=== PATIENT | male | born 1945 | race Caucasian/White ===

== ENCOUNTER 2017-04-20 10:04 | Inpatient (IN) | payer OTHER, MEDICAID ==
[~2017-04-20] VITALS: Ht 177.8 cm; Wt 85.8 kg
[2017-04-20 10:14] VITALS: BP 114/74
[2017-04-20] MEDS ORDERED: NACL 0.9% 2,000 ML IV SCH (10:15)
[2017-04-20] MEDS ORDERED: DONE10TA91 PO (10:25)
[2017-04-20] MEDS ORDERED: ASPI81EC98 PO ×3 (10:25→16:13)
[2017-04-20] MEDS ORDERED: PRAV80TA PO (10:25)
[2017-04-20] MEDS ORDERED: MEMA5TAB PO (10:25)
[2017-04-20] MEDS ORDERED: LISI-420 PO (10:25)
[2017-04-20] MEDS ORDERED: QUET25TA PO (10:25)
[2017-04-20] MEDS ORDERED: TRAZ-289 PO (10:25)
[2017-04-20] MEDS ORDERED: FENO160T9 PO (10:25)
[2017-04-20] MEDS ORDERED: MELA5SGL PO (10:25)
--- NOTE | 2017-04-20 10:30 | NUR ---
PATIENT PRESENTS TO ED WITH EMS FROM [facility] --- PMD INSTRUCTED PT TO GO TO ER FOR POSS SEPSIS---ABNORMAL LABS PT STATES DENIES PAIN . DENIES N/V/D; SKIN IS PINK/WARM/DRY; AA GCS14 HX DEMENTIA ; LUNGS CLEAR BL; HR EVEN AND REGULAR; PT DENIES ANY FEVER, CP, SOB, OR COUGH AT THIS TIME; PATIENT STATES PAIN OF 0/10 AT THIS TIME; VSS; PATIENT POSITIONED FOR COMFORT; HOB ELEVATED; BEDRAILS UP X2; BED DOWN. ER MD MADE AWARE OF PT STATUS.
--- NOTE | 2017-04-20 10:30 | NUR ---
BROTHER AT BEDSIDE
--- NOTE | 2017-04-20 10:31 | NUR ---
ANA JAFFE (BROTHER) HAS POWER OF MUSIC LIBRARY ASSISTANT [phone]
[2017-04-20 10:54] LABS: BASOPHILS # (AUTO) 0.1 K/uL (0.00-0.22); BASOPHILS % (AUTO) 1.1 % (0.0-2.0); EOSINOPHILS % (AUTO) 0.6 % (0.0-4.0); HEMATOCRIT 37.5 % (36-52); HEMOGLOBIN 12.7 g/dL (12.0-18.0); LYMPHOCYTES # (AUTO) 0.8 K/uL (2.0-11.5); LYMPHOCYTES % (AUTO) 11.8 % (20.5-51.1); MEAN CORPUSCULAR HEMOGLOBIN 33 pg (27-31); MEAN CORPUSCULAR HGB CONC 34 g/dL (33-37); MEAN CORPUSCULAR VOLUME 96 fL (80-94); MONOCYTES # (AUTO) 1.2 K/uL (0.8-1.0); MONOCYTES % (AUTO) 17.8 % (1.7-9.3); NEUTROPHILS # (AUTO) 4.7 K/uL (1.8-7.7); NEUTROPHILS % (AUTO) 68.7 % (42.2-75.2); PLATELET COUNT (AUTO) 184 K/uL (140-450); RED BLOOD CELL COUNT(AUTO) 3.89 MIL/uL (4.20-6.10); RED CELL DISTRIBUTION WIDTH 13.6 % (11.6-13.7); WHITE BLOOD COUNT (AUTO) 6.8 K/uL (4.8-10.8)
[2017-04-20 11:19] LABS: PROTHROMBIN TIME 11.3 secs (10.8-13.4)
[2017-04-20 11:29] LABS: ANION GAP 14.4 (8-16); CARBON DIOXIDE 25.5 mmol/L (21-32); CHLORIDE 108 mmol/L (98-107); CREATININE 1.5 mg/dL (0.7-1.3); GLUCOSE 121 mg/dL (74-106); POTASSIUM 3.9 mmol/L (3.5-5.1); SODIUM SERUM 144 mmol/L (136-145); UREA NITROGEN, BLOOD 45 mg/dL (7-18)
[2017-04-20 11:41] LABS: ALBUMIN 2.8 g/dL (3.4-5.0); ASPARTATE AMINOTRANSFERASE 40 U/L (15-37); TOTAL BILIRUBIN 0.3 mg/dL (0.0-1.0)
[2017-04-20 11:52] LABS: APPEARANCE,URINE TURBID (CLEAR); BILIRUBIN,URINE NEGATIVE (NEGATIVE); BLOOD, URINE 1+ (NEGATIVE); COLOR,URINE YELLOW (YELLOW); LEUKOCYTE ESTERASE ,URINE 2+ (NEGATIVE); NITRITE, URINE NEGATIVE (NEGATIVE); PH,URINE 5.5 (5.0-9.0); UGLUCOSE NEGATIVE (NEGATIVE)
--- NOTE | 2017-04-20 12:00 | NUR ---
PT ARRIVED ON THE UNIT ON A GURNEY WITH 2 ER NURSES. PT IS AWAKE. PT IS UNABLE TO TELL ME HIS NAME, DATE OF , WHERE HE IS CURRENTLY. INTRODUCED MYSELF AND UPDATED THE BOARD. EXPLAINED TO PT THAT HE IS IN A HOSPITAL. PT IS ON ROOM AIR. V/S WITHIN NORMAL RANGE. DENIES PT. IV ON L FA 20G NS BOLUS. JUST HUNG THE 2ND BAG. ADMINISTERED TELE MONITOR, YELLOW SOCK AND ARM BAND, SIGN ON DOOR, MRSA SCREENING. SKIN IS INTACT. EXPLAINED THE CALL LIGHT, TURNED ON TV. ALL NEEDS MET. WILL CONTINUE WITH ADMISSION.
[2017-04-20] MEDS: NACL 0.9% 1,000 ML IV SCH (12:08)
[2017-04-20] MEDS ORDERED: ACETAMINOPHEN 325 MG TAB PO PRN (12:10)
[2017-04-20] MEDS ORDERED: ONDANSETRON 4 MG/2 ML VIAL IVP PRN (12:10)
[2017-04-20] MEDS ORDERED: HYDROcodone/APAP 7.5/325 MG 1 TAB PO PRN (12:10)
--- NOTE | 2017-04-20 12:10 | NUR ---
Pt transferred to Tele via [facility] TO ROOM 108, REPORT GIVEN TO NEGRO CAO
[2017-04-20 12:25] LABS: RBC,URINE 0-5 (RARE) /HPF (0-5)
[2017-04-20 12:55] VITALS: BP 140/71
[2017-04-20 12:58] LABS: CHOL/HDL RATIO 6.7 (1-4.5); FREE T4 (FREE THYROXINE) 0.84 ng/dL (0.76-1.46); MAGNESIUM 2.2 mg/dL (1.8-2.4); PHOSPHORUS 2.8 mg/dL (2.5-4.9); THYROID STIMULATING HORMONE 1.54 uIU/mL (0.34-3.74)
--- NOTE | 2017-04-20 13:09 | NUR ---
72 y/o demented man, resident of a board & care, was noted by brother and staff that he is progressively worsening confusion x few days, no recent trauma, possibly he had a low grade fever, and anorexia. -due to such changes he was [facility] [place], treated by Amanda TORREZ. -dx dehydration and UTI. given Keflex po. -to day seen by pcp, Dr Saunders ? per brother and pcp, he is worse today than yesterday, also his urine on arrival is drippling and smelly. to r/o UROSEPSIS_ UTI as a cause of such deterioration. -pmh : includid above. -hx from brother and records. -Ros reveals weakness-confusion- fever. no cp, no sob no n/v/d, but had anorexia ; UTI Neuro / Musc Weakness skin no rashes psych : dementia EXAM ; 99.9 temp, other VSS. -Awake but confused. HEENT : No issues oral mucosa dry. neck supple, -Lungs CTA / Bilat H nsr. Abd Flat -lax soft, bs normal genital exam, no pathology. Extremeties no edema, pulses ok. initiated sepsis work up ivf : 30ml/kg given ekg my reading 10 : 20 76 nsr, pvcs, -frequent, otherwise axis and intervals wnl. xr chest neg -labs confirmed uti pt was taken-admitted to in patient before I could finish my ABXS iv for uti, the delay being from ALLERGIES nOt Documented and the system will not go through -when this was completed,they moved the pt in,without me finishing my tasks. -so dispo admitted? -dx -CONFUSION -ALOC -UTI -DEHYDRATION ABNORMAL EKG
--- NOTE | 2017-04-20 13:55 | NUR ---
PT PULLED OUT HIS IV AND STARTED WALKING IN THE HALLWAYS. PT IS VERY CONFUSED. UNABLE TO TELL ME HIS NAME, OR EVEN IF HE IS HUNGRY. CLEANED PT UP AND RESTARTED AN IV ON L AC 22G. PT TOLERATED WELL. WILL REQUESTED PT STAY IN BED. WILL CONTINUE TO MONITOR PT.
[2017-04-20 16:00] VITALS: BP 145/82
[2017-04-20] MEDS ORDERED: MORPHINE SULFATE 2 MG/ML SYR IVP PRN (16:35)
[2017-04-20] MEDS: LACTOBACILLUS RHAMNOSUS GG 1 EACH CAP PO SCH (16:41)
--- NOTE | 2017-04-20 16:53 | NUR ---
ADMINISTERED ROCEPHIN AND LACTOBACILLUS. PT TOLERATED WELL. CLEANED PT UP AND CHANGED LINENS. WILL CONTINUE TO MONITOR PT.
--- NOTE | 2017-04-20 17:20 | NUR ---
US TECH HERE TO DO RENAL AND CAROTID. WILL CONTINUE TO MONITOR PT.
--- NOTE | 2017-04-20 18:33 | NUR ---
ALL FINISHED WITH US AND LAB. PT NOW SITTING UP AND SITTING DINNER. WILL CONTINUE TO MONITOR PT.
--- NOTE | 2017-04-20 19:15 | NUR ---
ENDORSED PT TO THE SOIL SPECIALIST NURSE AT BEDSIDE FOR CONTINUITY OF CARE. PT IS IN STABLE CONDITION.
--- NOTE | 2017-04-20 19:30 | NUR ---
RECEIVED REPORT FROM DAY SHIFT RN, PATIENT AWAKE ALERT ORIENTED X1, CONFUSED. NO S/S OF DISTRESS NOTED, RESPIRATION EVEN AND UNLABORED, IV PATENT AND INTACT, IN FUSING NS AT 50ML/HR, PLAN OF CARE DISCUSSED, CALL LIGHT WITHIN REACH, SAFETY MEASURE ENSURED, WILL CONTINUE TO MONITOR.
[2017-04-20 20:00] VITALS: BP 141/76
--- NOTE | 2017-04-20 20:05 | NUR ---
PATIENT VOIDED AND HAD BOWEL MOVEMENT IN THE BED, ASSISTED ACCOUNTS RECEIVABLE ADMINISTRATOR, CLEANED THE PATIENT AND CHANGED THE GOWN, REPOSITIONED PATIENT WITH THE ACCOUNTS RECEIVABLE ADMINISTRATOR, CALL LIGHT WITHIN REACH, BED ALARM ON, BED AT THE LOWEST POSITION, SAFETY MEASURE ENSURED, WILL CONTINUE TO MONITOR.
[2017-04-20] MEDS ORDERED: DONEPEZIL 10 MG TAB PO SCH (21:00)
[2017-04-20] MEDS ORDERED: traZODone 50 MG TAB PO SCH (21:00)
[2017-04-20] MEDS ORDERED: QUEtiapine FUMARATE 25 MG TAB PO SCH (21:00)
[2017-04-20] MEDS: DOCUSATE SODIUM 100 MG GELCAP PO SCH (21:20)
[2017-04-20] MEDS: MEMANTINE 10 MG TAB PO SCH (21:21)
--- NOTE | 2017-04-20 21:25 | NUR ---
DUE MEDICATION GIVEN, PATIENT TOLERATED WELL. NO S/S OF DISTRESS NOTED, RESPIRATION EVEN AND UNLABORED, CALL LIGHT WITHIN REACH, SAFETY MEASURE ENSURED, WILL CONTINUE TO MONITOR.
--- NOTE | 2017-04-20 22:50 | NUR ---
PATIENT TRYING TO GET OUT OF THE BED, ASSISTED PATIENT BACK TO BED, AND REPOSITIONED PATIENT WITH THE GRAVEL TRUCK DRIVER, PATIENT RESTING IN BED NOW, NO S/S OF DISTRESS NOTED, RESPIRATION EVEN AND UNLABORED, CALL LIGHT WITHIN REACH, SAFETY MEASURE ENSURED, BED ALARM ON AND AT LOWEST POSITION, WILL CONTINUE TO MONITOR.
[2017-04-21] VITALS: BP 140/74
--- NOTE | 2017-04-21 00:06 | NUR ---
PATIENT WAS SLEEPING, EASY TO AROUSE, VITAL SIGNS STABLE, NO S/S OF DISTRESS NOTED, RESPIRATION EVEN AND UNLABORED, CALL LIGHT WITHIN REACH, SAFETY MEASURE ENSURED, WILL CONTINUE TO MONITOR.
--- NOTE | 2017-04-21 02:15 | NUR ---
PATIENT BACK TO HIS ROOM FROM THE CT, NO S/S OF DISTRESS NOTED, RESPIRATION EVEN AND UNLABORED, CALL LIGHT WITHIN REACH, SAFETY MEASURE ENSURED, WILL CONTINUE TO MONITOR.
--- NOTE | 2017-04-21 02:51 | NUR ---
RECEIVED CRITICAL CT REPORT, PAGED DR. BLANK.
--- NOTE | 2017-04-21 02:53 | NUR ---
INFORMED DR. BLANK, HEAD CT SHOWING 9MM THICK LEFT FRONTOPARIETAL SUBDURAL HEMATOMA. DR. BLANK SAID," OKAY, I WILL CHECK IT."
--- NOTE | 2017-04-21 03:04 | NUR ---
DR. BLANK CAME AND EXAMINED PATIENT AT THE BEDSIDE.
--- NOTE | 2017-04-21 03:05 | NUR ---
DR. BLANK WANTS TO TRANSFER THE PATIENT TO HIGHER LEVEL OF CARE. CHARGE NURSE AND SILVER PLATER ARE AWARE.
[2017-04-21 04:00] VITALS: BP 137/74
--- NOTE | 2017-04-21 04:54 | NUR ---
PATIENT RESTING IN BED, NO CHANGE IN CONDITION, RESPIRATION EVEN AND UNLABORED, CALL LIGHT WITHIN REACH, SAFETY MEASURE ENSURED, WILL CONTINUE TO MONITOR.
--- NOTE | 2017-04-21 05:33 | NUR ---
PT'S CT OF HEAD SHOWED SUBDURAL HEMATOMA.RESIDENT WANTS TO TRANSFER PT TO HIGHER LEVEL OF CARE EMERGENCY.CALLED AND FAXED FACE SHEET AND CT RESULT TO [facility] [place].WE ARE WAITING FOR DR SELBY TO CALL OUR DRChaBACK.ALSO WE FAXED SAME PAPERS TO [facility].WE ARE WAITING FOR THEM TO REVIEW PAPERS AND CALL US BACK.COPIED H&P,RD RESULTS LAB RESULTS.
--- NOTE | 2017-04-21 05:37 | NUR ---
PATIENT WAS TALKING TO HIMSELF, CLEANED THE PATIENT AND CHANGED THE SHEET. PATIENT TOLERATED WELL. NO S/S OF DISTRESS NOTED, RESPIRATION EVEN AND UNLABORED, CALL LIGHT WITHIN REACH, SAFETY MEASURE ENSURED, WILL CONTINUE TO MONITOR.
[2017-04-21 06:48] LABS: BASOPHILS # (AUTO) 0.1 K/uL (0.00-0.22); BASOPHILS % (AUTO) 1.2 % (0.0-2.0); EOSINOPHILS # (AUTO) 0.1 K/uL (0-0.4); EOSINOPHILS % (AUTO) 1.1 % (0.0-4.0); HEMATOCRIT 36.3 % (36-52); HEMOGLOBIN 12.3 g/dL (12.0-18.0); LYMPHOCYTES # (AUTO) 0.8 K/uL (2.0-11.5); LYMPHOCYTES % (AUTO) 12.8 % (20.5-51.1); MEAN CORPUSCULAR HEMOGLOBIN 32 pg (27-31); MEAN CORPUSCULAR HGB CONC 34 g/dL (33-37); MEAN CORPUSCULAR VOLUME 95 fL (80-94); MONOCYTES # (AUTO) 1.1 K/uL (0.8-1.0); MONOCYTES % (AUTO) 16.8 % (1.7-9.3); NEUTROPHILS # (AUTO) 4.4 K/uL (1.8-7.7); NEUTROPHILS % (AUTO) 68.1 % (42.2-75.2); PLATELET COUNT (AUTO) 181 K/uL (140-450); RED BLOOD CELL COUNT(AUTO) 3.81 MIL/uL (4.20-6.10); RED CELL DISTRIBUTION WIDTH 13.4 % (11.6-13.7); WHITE BLOOD COUNT (AUTO) 6.5 K/uL (4.8-10.8)
[2017-04-21 06:58] LABS: ANION GAP 12.1 (8-16); CARBON DIOXIDE 27.6 mmol/L (21-32); CHLORIDE 109 mmol/L (98-107); CREATININE 1.2 mg/dL (0.7-1.3); GLUCOSE 85 mg/dL (74-106); POTASSIUM 3.7 mmol/L (3.5-5.1); SODIUM SERUM 145 mmol/L (136-145); UREA NITROGEN, BLOOD 30 mg/dL (7-18)
[2017-04-21 07:03] LABS: MAGNESIUM 2.1 mg/dL (1.8-2.4); PHOSPHORUS 2.2 mg/dL (2.5-4.9)
--- NOTE | 2017-04-21 07:08 | NUR ---
TAVIA CALLED FROM [facility] AND SAID THEY DIDN'T RECEIVE FAX SO I FAXED ALL PAPER FOR THEM AGAIN.
--- NOTE | 2017-04-21 07:10 | NUR ---
RECEIVED PATIENT REPORT AT BEDSIDE. PATIENT AWAKE BUT CONFUSED. NO S/S OF DISTRESS NOTED.PATIENT ON ROOM AIR. NO SOB. O2 SAT AT 96%. IV LINE NOTED TO THE LEFT AC WITH IVF INFUSING WELL. PATIENT ON TELE MONITORING. BED LOWERED WITH CALL LIGHT WITHIN REACH. WILL CONTINUE TO MONITOR
--- NOTE | 2017-04-21 07:20 | NUR ---
ENDORSED PLAN OF CARE TO DAY SHIFT RN, PATIENT IS IN STABLE CONDITION, NO S/S OF DISTRESS.
--- NOTE | 2017-04-21 07:30 | NUR ---
SUKUMAR FROM [facility] CALLED AND ASKED PATIENT'S INFORMATION , UPDATED ALL INFORMATION AND PATIENT'S CONDITION . WILL LOOK FOR ACCEPTING NEURO SURGEON AND WILL CALL BACK. LEFT A MESSAGE FOR PATIENT'S BROTHER [phone].
[2017-04-21 08:00] VITALS: BP 138/102
--- NOTE | 2017-04-21 08:31 | NUR ---
JAYSHREE FROM [facility] CALLED BACK REQUESTING UPDATE INFORMATION ABOUT THE PATIENT AND UPDATED ALL THE INFORMATION ,JAYSHREE STATED WILL CALL BACK WHEN BED AND NEURO SURGEON AVAILABLE
--- NOTE | 2017-04-21 08:40 | NUR ---
PATIENT HAS BEEN SCREENED AND CATEGORIZED MODERATE RISK. PATIENT WILL BE SEEN WITHIN 3-5 DAYS OF ADMISSION. 04/23/17 TO 04/25/[address]
[2017-04-21] MEDS ORDERED: ECOTRIN 81 MG TABEC PO SCH (09:00)
[2017-04-21] MEDS ORDERED: FENOFIBRATE 48 MG TAB PO SCH (09:00)
[2017-04-21] MEDS ORDERED: LISINOPRIL 20 MG TAB PO SCH (09:00)
[2017-04-21] MEDS ORDERED: SODIUM PHOS / POTASSIUM PHOS 1 PKT PDR PO SCH (09:05)
[2017-04-21] MEDS: DOCUSATE SODIUM 100 MG GELCAP PO SCH (09:41)
[2017-04-21] MEDS: LACTOBACILLUS RHAMNOSUS GG 1 EACH CAP PO SCH ×2 (09:42→12:00)
[2017-04-21] MEDS: MEMANTINE 10 MG TAB PO SCH (09:43)
[2017-04-21] MEDS: NACL 0.9% 1,000 ML IV SCH (09:43)
--- NOTE | 2017-04-21 10:00 | NUR ---
RAGINI FROM [facility] CALLED BACK , PATIENT CAN GO TO UNIT 9100 TO GIVE REPORT [phone] [facility] ARRANGED TO WILL CALL WAITING FOR D/C ORDER AND D/C SUMMARY
[2017-04-21] MEDS ORDERED: ROC2I IV (11:26)
--- NOTE | 2017-04-21 11:43 | NUR ---
CALLED [facility]ER TIME 1230 PM KILEY RIOS AWARE.
[2017-04-21 12:00] VITALS: BP 165/93
[2017-04-21 12:09] VITALS: BP 165/93
--- NOTE | 2017-04-21 12:15 | NUR ---
CALLED [facility] GAVE PATIENT REPORT TO KILEY ERICKSON. PATIENT'S BROTHER ANA JAFFE NOTIFIED [facility]
--- NOTE | 2017-04-21 12:45 | NUR ---
PATIENT PICKED UP BY [facility] TO BE TRANSFERRED TO [place]. IV LINE LEFT INTACT. TELE MONITOR TAKEN OFF. PATIENT LEFT WITH ALL HIS DISCHARGE PAPERS. PATIENT LEFT IN STABLE CONDITION
== END 2017-04-21 12:45 | disposition short-term general hospital (02) | DRG 64 ==
LOC: MED 10:04 → MTU 12:08
PROVIDERS: ADMIT Family Medicine Sports Medicine; ATTEND Family Medicine Sports Medicine
DX: I62.01 Nontraumatic acute subdural hemorrhage (principal); N17.0 Acute kidney failure with tubular necrosis; E43 Unspecified severe protein-calorie malnutrition; G30.9 Alzheimer's disease, unspecified; N39.0 Urinary tract infection, site not specified; E87.8 Other disorders of electrolyte and fluid balance, not elsewhere classified; E86.0 Dehydration; F02.80 Dementia in other diseases classified elsewhere, unspecified severity, without behavioral disturbance, psychotic disturbance, mood disturbance, and anxiety; I10 Essential (primary) hypertension; E78.5 Hyperlipidemia, unspecified; N20.0 Calculus of kidney; R74.0 Nonspecific elevation of levels of transaminase and lactic acid dehydrogenase [LDH]; E83.39 Other disorders of phosphorus metabolism; Z68.27 Body mass index [BMI] 27.0-27.9, adult
CPT/HCPCS: 36415; 70450; 71045; 76770; 80048; 80053; 81001; 82140; 82150; 82550; 82553; 83036; 83605; 83690; 83735; 83874; 83880; 84100; 84439; 84443; 84484; 85025; 85610; 85730; 87040; 87081; 87086; 87186; 87804; 93005; 93880; 94640; 96360; 96361; 99285; C1758; J0696; J7030; J7060; Q0092